=== PATIENT | female | born 1995 ===

== ENCOUNTER 2024-07-02 09:34 | Emergency (ER) | payer OTHER ==
[~2024-07-02] VITALS: Ht 157.5 cm; Wt 65.5 kg
[2024-07-02 09:54] VITALS: TEMP 98.1
[2024-07-02 10:18] LABS: Basophils # (auto) 0.1 10 ^3/uL (0-0.2); Basophils % (auto) 0.6 % (0.0-2.0); Eosinophils # (auto) 0.1 10 ^3/uL (0-0.8); Eosinophils % (auto) 1.1 % (0.0-7.0); Hematocrit 41.3 % (36.0-46.0); Lymphocytes # (auto) 2.2 10 ^3/uL (0.4-5.4); Lymphocytes % (auto) 20.7 % (10.0-50.0); Mean Corpuscular Hemoglobin 30.3 pg (28.0-32.0); Mean Corpuscular Hgb Conc. 33.8 g/dL (32.0-36.0); Mean Corpuscular Volume 89.8 fL (80.0-100.0); Monocytes # (auto) 0.5 10 ^3/uL (0-1.3); Monocytes % (auto) 5.1 % (0.0-12.0); Neutrophils # (auto) 7.8 10 ^3/uL (1.6-8.6); Neutrophils % (auto) 72.5 % (37.0-80.0); Nucleated Red Blood Cells % 0.1 %; Platelet Count (auto) 279 10^3/uL (140-450); Red Cell Distribution Width 12.9 % (11.8-14.3); White Blood Cell 10.8 10^3/uL (4.4-10.8)
--- NOTE | 2024-07-02 10:25 | ED.PDOC ---
RESERVOIR CARETAKER HPI Comments 28 year old female presents to the ED with a chief complaint of heavy vaginal bleeding onset today (07/02/2024) about 15 minutes prior to ED arrival. Patient states she is currently 13 weeks , LMP 04/05/24, P:0. Patient began experiencing light cramping/heavy sensation prior to vaginal bleeding. During assessment, patient bled through clothes and left puddle of blood on chair. Denies any PMHx as well as trauma, injury, fall, dysuria, fever, chills, nausea, vomiting, diarrhea. No other symptoms or modifying factors present at this time. Chief Complaint: Vaginal Bleed Time Seen by MD: 10:17 Reviewed Notes: Medications, Allergies Allergies: Coded Allergies: NO KNOWN ALLERGIES (Unverified , 07/02/24) Information Source: Patient Mode of Arrival: Ambulatory Timing: Hours Prehospital treatment: None Severity: Moderate Vaginal Discharge: None Vaginal Lesions: None Bleeding Quality: Bright Red Vaginal Mass: None Onset Of Mass/Bleeding: Spontaneous Sexual Activity: Last Consensual [place]: Unknown History of: Current Symptoms of Possible : Missed Period Associated Signs and Symptoms: Vaginal Bleeding, Abdominal Pain, Cramping Past Medical History PAST MEDICAL HISTORY: Denies Surgical History: Denies all surgeries TALENT RECRUITER History: No Pertinent TALENT RECRUITER History Family History Family History: Unknown Social History Smoker: Non-Smoker Alcohol: Denies ETOH Use Drugs: Denies Drug Use Lives In: Home Constitutional: denies: chills, diaphoresis, fatigue, fever, malaise, sweats, weakness, others EENTM: denies: blurred vision, double vision, ear bleeding, ear discharge, ear drainage, ear pain, ear ringing, eye pain, eye redness, hearing loss, mouth pain , mouth swelling, nasal discharge, nose bleeding, nose congestion, nose pain, photophobia, tearing, throat pain, throat swelling, voice changes, others Respiratory: denies: cough, hemoptysis, orthopnea, SOB at rest, shortness of breath, SOB with excertion, stridor, wheezing, others Cardiovascular: denies: chest pain, dizzy spells, diaphoresis, Dyspnea on exertion, edema, irregular heart beat, left arm pain, lightheadedness, palpitations, PND, syncope, others Gastrointestinal: reports: abdominal pain; denies: abdomen distended, blood streaked bowels, constipated, diarrhea, dysphagia, difficulty swallowing, hematemesis, melena, nausea, poor appetite, poor fluid intake, rectal bleeding, rectal pain, vomiting, others Genitourinary: reports: abnormal vagina bleeding, ; denies: burning, dyspareunia, dysuria, flank pain, frequency, hematuria, incontinence, pain, vagina discharge, urgency, others Neurological: denies: dizziness, fainting, headache, left sided numbness, left sided weakness, numbness, paresthesia, pre-existing deficit, right sided numbness, right sided weakness, seizure, speech problems, tingling, tremors, weakness, others Musculoskeletal: denies: back pain, gout, joint pain, joint swelling, muscle pain, muscle stiffness, neck pain, others Integumetry: denies: bruises, change in color, change in hair/nails, dryness, laceration, lesions, lumps, rash, wounds, others Allergic/Immunocompromised: denies: Difficulty Healing, Frequent Infections, Hives, Itching, others Hematologic/Lymphatic: denies: anemia, blood clots, easy bleeding, easy bruising, swollen glands, others Endocrine: denies: excessive hunger, excessive sweating, excessive thirst, excessive urination, flushing, intolerance to cold, intolerance to heat, unexplained weight gain, unexplained weight loss, others Psychiatric: denies: anxiety, bipolar disorder, depression, hopeless, panic disorder, schizophrenia, sleepless, suicidal, others All Other Systems: Reviewed and Negative Physical Exam General Appearance: No Apparent Distress, Normal HEENT: Normal ENT Inspection, PERRL/EOMI, Pharynx Normal, TMs Normal Neck: Full Range of Motion, Non-Tender, Normal, Normal Inspection Respiratory: Chest Non-Tender, Lungs Clear, No Accessory Muscle Use, No Respiratory Distress, Normal Breath Sounds Cardiovascular: No Edema, No JVD, No Murmur, No Gallop, Normal Peripheral Pulses, Regular Rate/Rhythm Breast Exam: Deferred Gastrointestinal: No Organomegaly, No Pulsatile Mass, Normal Bowel Sounds, Soft, Suprapubic, Tenderness Genitalia: Other (Diffuse vaginal bleeding patient 13 weeks) Pelvic: Deferred, Vaginal Bleeding Rectal: Deferred Extremities: No calf tenderness, Normal capillary refill, Normal inspection, Normal range of motion, Non-tender, No pedal edema Musculoskeletal : Apperance: Normal Neurologic: Alert, drink box mechanic II-XII nml as Tested, No Motor Deficits, Normal Affect, Normal Mood, No Sensory Deficits Cerebellar Function: Normal Reflexes: Normal Skin: Dry, Normal Color, Warm Peripheral Pulses: 1+ carotid (R), 1+ carotid (L) Lymphatic: No Adenopathy Was a procedure done? Was a procedure done?: No Differential Diagnosis (TALENT RECRUITER) Vaginal Bleeding: - Inevitable, - Threatened, Blood Loss Anemia, Dysmenorrhea, Menometrorrhagia, UTI Mass / Lesion: N/A Vaginal Discharge: N/A X-Ray, Labs, Meds, VS Vital Signs Date Time Temp Pulse Resp B/P (MAP) Pulse Ox O2 Delivery O2 Flow Rate FiO2 07/02/24 12:00 106 07/02/24 12:00 104 16 119/77 (91) 99 07/02/24 11:56 99 Room Air* 0 21 07/02/24 11:52 102 16 99 Room Air* 0 21 07/02/24 10:00 105 16 113/83 (93) 99 07/02/24 10:00 117 07/02/24 09:54 98.1 118 16 133/79 (97) 99 07/02/24 09:54 98.1 118 16 133/79 (97) 99 98.1 Lab Test 07/02/24 10:02 07/02/24 10:00 Range/Units Sodium Level 138 136-145 mmol/L Potassium Level 3.5 3.5-5.1 mmol/L Chloride Level 104 98-107 mmol/L Carbon Dioxide Level 23 20-31 mmol/L Anion Gap 11 5-15 Blood Urea Nitrogen 8 L 9-23 mg/dL Creatinine 0.73 0.550-1.02 mg/dL Glomerular Filtration Rate Calc 115 >90 mL/min BUN/Creatinine Ratio 11.0 10.0-20.0 Serum Glucose 122 H 74-106 mg/dL Calcium Level 9.7 8.7-10.4 mg/dL Total Bilirubin 0.3 0.2-1.0 mg/dL Aspartate Amino Transferase (AST) 14 13-40 U/L Alanine Aminotransferase (ALT) 13 7-40 U/L Alkaline Phosphatase 54 46-116 U/L Total Protein 7.2 5.7-8.2 g/dL Albumin 4.8 3.2-4.8 g/dL Beta HCG, Quantitative 2692.7 H 1.5-4.2 mIU/mL White Blood Count 10.8 4.4-10.8 10^3/uL Red Blood Count 4.60 4.0-5.20 10^6/uL Hemoglobin 14.0 12.2-16.2 g/dL Hematocrit 41.3 36.0-46.0 % Mean Corpuscular Volume 89.8 80.0-100.0 fL Mean Corpuscular Hemoglobin 30.3 28.0-32.0 pg Mean Corpuscular Hemoglobin Concent 33.8 32.0-36.0 g/dL Red Cell Distribution Width 12.9 11.8-14.3 % Platelet Count 279 140-450 10^3/uL Mean Platelet Volume 7.9 6.9-10.8 fL Neutrophils (%) (Auto) 72.5 37.0-80.0 % Lymphocytes (%) (Auto) 20.7 10.0-50.0 % Monocytes (%) (Auto) 5.1 0.0-12.0 % Eosinophils (%) (Auto) 1.1 0.0-7.0 % Basophils (%) (Auto) 0.6 0.0-2.0 % Neutrophils # (Auto) 7.8 1.6-8.6 10 ^3/uL Lymphocytes # (Auto) 2.2 0.4-5.4 10 ^3/uL Monocytes # (Auto) 0.5 0-1.3 10 ^3/uL Eosinophils # (Auto) 0.1 0-0.8 10 ^3/uL Basophils # (Auto) 0.1 0-0.2 10 ^3/uL Nucleated Red Blood Cells 0.1 % Current Medications Medications (Trade) Dose Ordered Sig/Jose Route Start Time Stop Time Status Last Admin Sodium Chloride 500 ml @ 500 mls/hr Q1H ONCE IV 07/02/24 10:30 07/02/24 11:29 DC 07/02/24 10:35 X-Ray, Labs, Meds, VS Comment Course in the emergency department eventful patient came in because of profuse vaginal bleeding she is 13 weeks The blood pressure 133/79 EKG shows sinus tachycardia at 1:17 a.m. CBC normal CMP negative Urine shows no IUP Beta hCG 2692.7 Urine pending Rh pending Time of 1ST Reevaluation: 10:47 Reevaluation 1ST: Unchanged Patient Education/Counseling: Diagnosis, Treatment, Prognosis Family Education/Counseling: No Family Present Additional Information - The following tests were ordered, and results were reviewed by me: CBC, CMP, TYPE ANS SCREEN, OB ULTRASOUND COMP LESS THAN 14 WEEKS, BETA HCG, UA - I reviewed and agreed with the following test results read by other provider: OB ULTRASOUND COMP LESS THAN 14 WEEKS, BETA HCG, - I discussed treatments and results with medical personnel and: patient Departure 1 Departure Time of Disposition: 13:20 Impression: Primary Impression: Complete Disposition: 01 HOME / SELF CARE / HOMELESS Condition: Fair Additional Instructions: Push fluids bedrest tonight follow up with your explosive ordnance disposal specialist e-Prescriptions Methylergonovine Maleate (METHERGINE) 0.2 Mg Tab 0.2 MG OR TID PRN for 5 Days, #15 TAB Prov: ZULEYKA ACE MD 07/02/24 Discharged With: Self, Spouse Critical Care Note Critical Care Time?: No Stability Stability form required: No Heart Score Heart Score: Heart Score Response (Comments) Value History N/A 0 EKG N/A 0 Age <45 0 Risk Factors No known risk factors 0 Troponin N/A 0 Total 0 I personally scribed for ZULEYKA ACE MD ([email or web address]) on 07/02/24 at 10:25. Electronically submitted by Joycelyn Lindquist ([email or web address]). I personally scribed for ZULEYKA ACE MD ([email or web address]) on 07/02/24 at 10:26. Electronically submitted by Joycelyn Lindquist ([email or web address]). ZULEYKA ACE MD Jul 02, 2024 10:25
[2024-07-02] MEDS: SODIUM CHLORIDE 0.9% 500 ML IV ONE (10:35)
[2024-07-02 10:39] LABS: Alanine Aminotransferase 13 U/L (7-40); Albumin 4.8 g/dL (3.2-4.8); Alkaline Phosphatase 54 U/L (46-116); Anion Gap 11 (5-15); Aspartate Aminotransferase 14 U/L (13-40); Calcium 9.7 mg/dL (8.7-10.4); Carbon Dioxide 23 mmol/L (20-31); Chloride 104 mmol/L (98-107); Sodium 138 mmol/L (136-145)
[2024-07-02 10:40] LABS: Bilirubin, Total 0.3 mg/dL (0.2-1.0); Blood Urea Nitrogen 8 mg/dL (9-23); Glucose 122 mg/dL (74-106); Potassium 3.5 mmol/L (3.5-5.1); Total Protein 7.2 g/dL (5.7-8.2)
[2024-07-02 11:52] VITALS: PULSE 102; RESP 16; O2SAT 99
--- NOTE | 2024-07-02 12:03 | DVH ---
OB ULTRASOUND <14 WEEKS: HISTORY: VAG BLEED TECHNIQUE: Multiple real-time grayscale sonographic images of the pelvis with duplex Doppler color f low, spectral and M-mode analysis. TRANSDUCERS: Transabdominal and transvaginal COMPARISON: None FINDINGS: The uterus measures 1.0 x 6.3 x 7.5 cm. No intrauterine is seen at this time. The endomet rium is thickened and heterogenous and measures up to 2.1 cm. The cervix is unremarkable. Right ovary is not visualized. No evidence of adnexal masses. Left ovary is not visualized. No evidence of adnexal masses. No evidence of pelvic free fluid. IMPRESSION: 1. No intrauterine is seen at this time. The endometrium is thickened and heterogenous daisy uring up to 2.1 cm. Recommend follow-up ultrasound and serial beta HCG as clinically indicated. 2. Bilateral ovaries are not visualized. No evidence of adnexal masses.
[2024-07-02] MEDS ORDERED: METH-822 OR (13:38)
[2024-07-02 14:00] VITALS: BP 117/72; PULSE 101; RESP 16; O2SAT 99
[2024-07-02] MEDS: METHYLERGONOVINE MALEATE 0.2 MG/ML AMP IM ONE (14:00)
== END 2024-07-02 14:37 | disposition home or self-care (01) ==
LOC: ER 09:34
DX: O03.9 Complete or unspecified spontaneous abortion without complication (principal); Z3A.13 13 weeks gestation of pregnancy
CPT/HCPCS: 36415; 76801; 76817; 80053; 84702; 85025; 86850; 86900; 86901; 96360; 96372; 99285; J2210; J7040